=== PATIENT | female | born 1970 | race Caucasian/White ===

== ENCOUNTER → 2024-07-29 | Outpatient (CLI) | payer OTHER, SELFPAY ==
[2024-07-29 14:09] LABS: Glucose Estimated Average 108 mg/dL (80-131); Hemoglobin A1C 5.4 % Hgb (4.8-6.0)
== END | disposition home or self-care (01) ==
LOC: COPL 12:32
PROVIDERS: PCP Family Medicine; Referring Provider Family Medicine; Visit Provider Family Medicine
DX: E11.65 Type 2 diabetes mellitus with hyperglycemia (principal)
CPT/HCPCS: 36415; 83036

== ENCOUNTER → 2024-10-31 | Outpatient (CLI) | payer OTHER, SELFPAY ==
[2024-10-31 09:06] LABS: Glucose Estimated Average 103 mg/dL (80-131); Hemoglobin A1C 5.2 % Hgb (4.8-6.0)
[2024-10-31 09:08] LABS: Cardiac Risk Estimate 4.1 RATIO (3.7-5.6); Cholesterol 150 mg/dL (132-200); HDL Cholesterol 37 mg/dL (40-60); LDL Cholesterol,Calculated 89 mg/dL (0-130); Triglycerides 119 mg/dL (30-150)
== END | disposition home or self-care (01) ==
LOC: COPL 07:26
PROVIDERS: PCP Family Medicine; Referring Provider Family Medicine; Visit Provider Family Medicine
DX: E11.65 Type 2 diabetes mellitus with hyperglycemia (principal)
CPT/HCPCS: 36415; 80061; 83036

== ENCOUNTER 2024-11-25 15:24 | Outpatient (AMB) | payer OTHER, SELFPAY ==
[2024-11-25 15:45] VITALS: BP 111/68; PULSE 114; RESP 18; TEMP 36.3; O2SAT 96; BMI 29.1
--- NOTE | 2024-11-25 15:45 | AMB.GYNCLNOT ---
Vital Signs 11/25/24 15:45 Height 1.55 m Height Method Stated Weight 70.023 kg Weight Measurement Method Standing Scale BMI 29.1 BP 111/68 Blood Pressure Source Automatic Cuff Blood Pressure Location Left Upper Arm Position Sitting Respiration 18 Pulse 114 H Pulse Source Monitor Temp 97.3 F Temp Source Oral Pulse Oximetry (%) 96 Oxygen Delivery Method Room Air Allergies/Home Meds Allergies & Medications Allergies nitrofurantoin (From Macrobid) Allergy (Intermediate, Verified 11/25/24 15:46) Rash Medication Reconciliation levothyroxine 75 mcg tablet 75 mcg PO QDAY 07/11/21 [History Confirmed 11/25/24] Intake Visit Data Collection New Patient or Established: Established Patient (seen at [facility] within 3 years) Reason for Visit:: ANNUAL WELLNESS Seen by Clinical Staff ONLY (RN/MA): No Switchman Supervisor Required: No Do You Feel Safe at Home: Yes Authorities Contacted: N/A PCP or OBGYN visit in last 3 months: Yes Hx Now: No Are you currently on any form of Control: Yes Last menstrual period: 11/03/19 Pain Present Currently: No Pain Scale Used: Theodore-Mendiola/Numerical Pain scale:: 0 Smoking Status Smoking Status: Never smoker 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 1. Little interest or pleasure in doing things: not at all 2. Feeling down, depressed, or hopeless: not at all Total score: 0 PHQ-9 3. Trouble falling or staying asleep, or sleeping too much: Not at all 4. Feeling tired or having little energy: Not at all 5. Poor appetite or overeating: Not at all 6. Feeling bad about yourself - or that you are a failure or have let yourself or your family down: Not at all 7. Trouble concentrating on things, such as reading the newspaper or watching television: Not at all 8. Moving or speaking so slowly that other people could have noticed? - Or the opposite - being so fidgety or restless that you have been moving around a lot more than usual: not at all 9. Thoughts that you would be better off or of hurting yourself in some way: Not at all Total score: 0 Source: Developed by Drs. Juaquin Harrington, Brandy Sewell, Terry Cantor and colleagues, with an educational russell from [employer]. 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 23 y/o son, 26 y/o girl Tobacco History Smoking Status: Never smoker Second Hand Smoke Exposure: No Alcohol History Alcohol Intake: Never Substance Use History Substance Use: NONE Domestic Abuse History Do You Feel Safe at Home: Yes Past Medical History Past Medical History Have you ever been diagnosed with any of the following: Neurological Problems Seizures: No Cardiology Problems Cardiac Arrhythmia: No Heart Murmur: No Congestive Heart Failure: No Deep Vein Thrombosis: No Hypertension: No Respiratory Problems Asthma: No Sleep Apnea: No Smoking: No Smoking Cessation Counseling: No Stomache/Intestinal Problems Gall Bladder Disease: Yes (Cholecystectomy 06/2021) Obesity: Yes (Lost 44 pounds on Mounjaro. Still on Mounjaro 7 to 10 mg a day) Genital/Urinary Problems Kidney Stones: No Reproductive Problems Breast Cancer: No Endometriosis: No Fibroids: No Genital Herpes: No Gonorrhea: No Pelvic Inflammatory Disease: No Polycystic Ovarian Syndrome: Yes Previous Pregnancies: Yes (Vaginal delivery 1998 2001) Musculoskeletal Problems Arthritis: No Rheumatoid Arthritis: No Degenerative Disk Disease: Yes (Back surgery at [facility] 10 years ago with 2 disc replaced) Head,Eye,Nose,Throat Problems Cataracts: No Glaucoma: No Endocrine Problems Diabetes Mellitus Type 2: No Hypothyroidism: Yes (On levothyroxine) Blood Problems Anemia: No Psychologic Problems Depression: Yes (On Effexor 150 mg p.o. daily) Anxiety: Yes Other Problems Hospitalization: Yes (For x1, x 1) Autoimmune Disease: No Cosmetic Surgery: No Blood Transfusions: No Anesthesia Reactions: No Chicken Pox: Yes Surgical History Appendectomy: No Bariatric Surgery: No Breast Surgery: No Cholecystectomy: Yes Additional Surgical History: Back surgery with 2 discs replaced, NovaSure endometrial ablation. 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 History of Present Illness HPI Narrative The patient is a 54-year-old -0-2-2 who used to see me in [place]. She used to come for annual exams. We did perform an ablation on her in the past and she states her cycles are still monthly but they are much park recreation manager. She did not get her records yet but she will request a release of her records from my office. She is due for a mammogram. She has no gynecological complaints today specifically no hot flashes or night sweats as she still having menstrual cycles regular at age 54 we will go ahead and order a pelvic ultrasound. I told the patient if her lining is thick we might want to consider an endometrial biopsy. She has a daughter Nellie who is born in the 90s who is graduated college has a degree in public health and is working with dementia patients her son Terence cruz graduates soon from [employer] with a business administration degree he also has a real estate license. 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 Natividad Daniella and is her primary care patient. Patient is been on Ozempic and lost 44 pounds since last April. Menstrual character: normal Gynecologic pain symptoms: Reports none Menopause concerns/symptoms: Reports none Other pertinent information: Patient's status post NovaSure endometrial ablation in the past to my office. She continues to have regular cycles. No hot flashes no night sweats. An older sister went through menopause at 52. Her mother had a hysterectomy so she is not sure when she went through menopause. Review of Systems Constitutional Constitutional: Reports system reviewed and no additional complaints, except as documented Exam General General Appearance: alert, in no apparent distress, comfortable, cooperative, healthy appearing and well groomed Neck Neck exam: Present normal inspection, full ROM and trachea midline Chest Chest inspection: Present normal inspection and symmetric chest wall rise Exp Chest Breast: bilateral: other (Normal breast exam bilaterally.) Resp Respiratory exam: Present normal lung sounds bilaterally Card Cardiovascular exam: Present regular rate, normal rhythm and normal heart sounds Abdominal Abdominal exam: Present soft and normal bowel sounds External exam: Present normal external exam Speculum exam: Present normal speculum exam Bimanual exam: Present normal bimanual exam Extremities Extremities exam: Present normal inspection and full ROM Psych Psychiatric exam: Present normal affect and normal mood Skin Skin exam: Present warm, dry, intact and normal color Assessment & Plan Diagnosis / Problem List (1) Encounter for Routine Gynecological Examination: Qualifiers: Gynecological examination findings: abnormal findings ABSENT Qualified Code(s): Z01.419 - Encounter for gynecological examination (general) (routine) without abnormal findings Plan: Pap with cotesting high risk HPV was performed breast exam done encouraged. Mammogram was ordered. Primary care is checking all lab work on her. (2) Abnormal perimenopausal bleeding: Status: Acute Assessment and Plan: Patient is not menopausal. She has never stopped her cycles. But she is 54 having regular cycles after an ablation. Plan to check an ultrasound. If the lining is thick bring place him patient back in for endometrial biopsy. Additional Plan Follow Up: 1 Year Office Procedures OB Clinic LOC & Office Proc's Nursing/Assessment Patient Status: Established Patient OB Clinic Nursing Assessment: Medication Reconciliation, Update PMH in EMR and Vital Signs OB Clinic Coordination of Care: Complex Care and Chronic Disease 1-5, Consent,records obtained, informed consent, Education Simp Pt/Fam, Lab and Imaging orders and Staff clarify orders Miscellaneous Interventions: Breast Exam and Pelvic/Pap Smear Set up Established Patient Charge Established Patient Point Assignment: 150 Established Patient Point Charge: EP Level 4 (120-155) In Clinic Procedures Pap Smear: Yes
== END 2024-11-25 16:00 | disposition home or self-care (01) ==
LOC: HODSOBC 15:24
PROVIDERS: PCP Family Medicine; Referring Provider Family Medicine; Supervising Provider Obstetrics & Gynecology; Visit Provider Obstetrics & Gynecology
DX: Z01.419 Encounter for gynecological examination (general) (routine) without abnormal findings (principal); N92.4 Excessive bleeding in the premenopausal period; E03.9 Hypothyroidism, unspecified; E66.9 Obesity, unspecified; Z68.29 Body mass index [BMI] 29.0-29.9, adult; Z79.890 Hormone replacement therapy; Z79.899 Other long term (current) drug therapy
CPT/HCPCS: 99214; Q0091; G0463

== ENCOUNTER → 2024-12-11 | Outpatient (CLI) | payer OTHER, SELFPAY ==
--- NOTE | 2024-12-11 07:15 | XR_ITS ---
Examination: Transvaginal ultrasound of the pelvis, complete Technique: Transvaginal sonographic images pelvis performed using wang scale imaging Exam date and time: December 11, 2024 0731 hours INDICATIONS: Prominent lower uterine segment on CT pelvis July 11, 2021 FINDINGS: Uterus 8.9 cm, cervical mass versus cyst with internal echoes 13 x 7 x 12 mm Endometrial stripe 0.6 cm Ovaries obscured by bowel gas IMPRESSION: Cervical cyst versus mass 13 x 7 x 12 mm Recommend MRI pelvis follow-up pre and postcontrast.
--- NOTE | 2024-12-11 07:15 | XR_ITS ---
Examination: Pelvic ultrasound, transabdominal, complete Technique: Transabdominal ultrasound of the pelvis performed using grayscale imaging Date and time of exam: December 11, 2024 at 0722 hours INDICATIONS: Prominent lower uterine segment on CT pelvis July 11, 2021 FINDINGS: Uterus 9.8 cm endometrial stripe 0.8 cm No uterine mass depicted Right ovary 2.3 cm arterial flow small follicles, the largest 11 mm Left ovary 2.4 cm arterial flow, small follicles, the largest 7 mm IMPRESSION: No uterine or adnexal mass
== END | disposition home or self-care (01) ==
PROVIDERS: PCP Family Medicine; Referring Provider Obstetrics & Gynecology; Visit Provider Obstetrics & Gynecology
DX: N93.8 Other specified abnormal uterine and vaginal bleeding (principal)
CPT/HCPCS: 76830; 76856

== ENCOUNTER 2024-12-25 17:07 | Outpatient (AMB) | payer OTHER, SELFPAY ==
--- NOTE | 2024-12-25 17:08 | GYNCLNT_ITS ---
Allergies/Home Meds Allergies & Medications Allergies nitrofurantoin (From Macrobid) Allergy (Intermediate, Verified 12/25/24 17:08) Rash Medication Reconciliation levothyroxine 75 mcg tablet 75 mcg PO QDAY 07/11/21 [History Confirmed 12/25/24] Intake Visit Data Collection New Patient or Established: Established Patient (seen at [facility] within 3 years) Reason for Visit:: Tele med to discuss TV US and mammogram Consent obtained for Telemed Visit: Yes Retreader Required: No Do You Feel Safe at Home: Yes Authorities Contacted: N/A PCP or OBGYN visit in last 3 months: Yes Hx Now: No Are you currently on any form of Control: No Pain Present Currently: No Pain Scale Used: Theodore-Mendiola/Numerical Pain scale:: 0 Smoking Status Smoking Status: Never smoker 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 1. Little interest or pleasure in doing things: not at all 2. Feeling down, depressed, or hopeless: not at all Total score: 0 PHQ-9 3. Trouble falling or staying asleep, or sleeping too much: Not at all 4. Feeling tired or having little energy: Not at all 5. Poor appetite or overeating: Not at all 6. Feeling bad about yourself - or that you are a failure or have let yourself or your family down: Not at all 7. Trouble concentrating on things, such as reading the newspaper or watching television: Not at all 8. Moving or speaking so slowly that other people could have noticed? - Or the opposite - being so fidgety or restless that you have been moving around a lot more than usual: not at all 9. Thoughts that you would be better off or of hurting yourself in some way: Not at all Total score: 0 If you checked off any problems, how difficult have these problems made it for you to do your work, take care of things at home, or get along with other people?: not difficult at all Source: Developed by Brandy Mendez B.W. Donato, Terry Cantor and colleagues, with an educational russell from [employer]. 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 Still on Mounjaro 7 to 10 mg a day) Genital/Urinary Problems Renal Disease: No Reproductive Problems Breast Cancer: No Endometriosis: No Fibroids: No Genital Herpes: No Gonorrhea: No Pelvic Inflammatory Disease: No Polycystic Ovarian Syndrome: Yes Previous Pregnancies: Yes (Vaginal delivery 1998 2001) Syphilis: No Musculoskeletal Problems Degenerative Disk Disease: Yes (Back surgery at [facility] 10 years ago with 2 disc replaced) Endocrine Problems Diabetes Mellitus Type 2: No Hypothyroidism: Yes (On levothyroxine) Blood Problems Anemia: No Psychologic Problems Depression: Yes (On Effexor 150 mg p.o. 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 Pt still having light cycles at age 54 s/p Novasure ablation in the past. US done to r/o thick lining. Also mammo with a spot on it and would like to discuss. Results Objective Laboratory: Pap not on chart Will look up report and review with patient Imagin12/11/24 US at [facility]: Uterus 8.9 cm stripe 0.6 cm Ovaries both WNL 1.3 x 1.2 x 0.6 cm mass on cx need MRI to further dx Reasurred pt this is most likely a nabothian cyst and recommended repeat TV US at another facility is 6 mos No need for EMB at this time Mammo at [place] Dense tissue on left Offered referral to Dr Sal or repeat mammo in 6 months Pt will have repeat mammo in 6 months Assessment & Plan Diagnosis / Problem List (1) Abnormal perimenopausal bleeding: Status: Acute Assessment and Plan: Keep an eye on VB , repeat US 6 mos not at [facility] (2) Abnormal mammogram: Status: Acute Plan: Repeat mammo in 6 months. Call if she notices any differences on a self breast exam Office Procedures OB Clinic LOC & Office Proc's Nursing/Assessment Patient Status: Established Patient OB Clinic Nursing Assessment: Medication Reconciliation and Update PMH in EMR OB Clinic Coordination of Care: Consent,records obtained, informed consent, Lab and Imaging orders and Staff clarify orders Established Patient Charge Established Patient Point Assignment: 45 Telehealth If patient is seen using Teleconference methods, complete New/Est section, but DO NOT clay points only clay the correct Telemed visit type Telemed Phone/Video with patient at home & ,PA,PHOTOGRAPHER APPRENTICE LITHOGRAPHIC: Yes
== END 2024-12-25 17:31 | disposition home or self-care (01) ==
LOC: HODSOBC 17:07
PROVIDERS: PCP Family Medicine; Referring Provider Family Medicine; Supervising Provider Obstetrics & Gynecology; Visit Provider Obstetrics & Gynecology
DX: N92.4 Excessive bleeding in the premenopausal period (principal); R92.8 Other abnormal and inconclusive findings on diagnostic imaging of breast
CPT/HCPCS: 99212; G0463

== ENCOUNTER → 2025-01-29 | Outpatient (CLI) | payer OTHER, SELFPAY ==
[2025-01-29 11:53] LABS: Glucose Estimated Average 103 mg/dL (80-131); Hemoglobin A1C 5.2 % Hgb (4.8-6.0)
== END | disposition home or self-care (01) ==
LOC: COPL 10:15
PROVIDERS: PCP Family Medicine; Referring Provider Family Medicine; Visit Provider Family Medicine
DX: E11.65 Type 2 diabetes mellitus with hyperglycemia (principal)
CPT/HCPCS: 36415; 83036

== ENCOUNTER → 2025-02-04 | Outpatient (CLI) | payer OTHER, SELFPAY ==
[2025-02-04 16:31] LABS: Basophils # (Auto) 0.1 Thou/mm3 (0.0-0.2); Basophils % (Auto) 1 % (0-2.5); Eosinophils # (Auto) 0.1 Thou/mm3 (0.0-0.5); Eosinophils % (Auto) 1 % (0-10); Hemoglobin 14.8 g/dL (12.0-16.0); Immature Granulocytes % (Auto) 0 % (0-0); Immature Granulocytes Auto 0.04 Thou/mm3 (0.00-0.00); Lymphocytes # (Auto) 2.3 Thou/mm3 (1.0-4.8); Lymphocytes % (Auto) 20 % (10-50); Mean Corpuscular HGB Conc 33.6 g/dl (31.0-37.0); Mean Corpuscular Hemoglobin 27.8 pg (25.0-35.0); Mean Corpuscular Volume 83 fL (80-100); Monocytes # (Auto) 0.6 Thou/mm3 (0.0-0.8); Monocytes % (Auto) 5 % (0-12); Neutrophils # (Auto) 8.6 Thou/mm3 (1.8-7.7); Neutrophils % (Auto) 73 % (37-80); Nucleated Red Blood Cell % 0 /100 WBC (0); Platelet Count 291 Thou/mm3 (140-440); RDW Standard Deviation 39.7 fL (36.4-46.3); Red Blood Count 5.32 Miln/mm3 (4.00-5.20); White Blood Count 11.8 Thou/mm3 (3.6-11.0)
[2025-02-04 17:01] LABS: Alanine Aminotransferase 9 U/L (10-49); Albumin, Serum 4.2 gm/dL (3.5-5.0); Albumin/Globulin Ratio 1.9 (1.2-2.2); Alkaline Phosphatase 69 U/L (46-116); Anion Gap 9 (7-16); BUN/Creatinine Ratio 12 Ratio (12-20); Bilirubin,Total 0.4 mg/dL (0.3-1.2); Blood Urea Nitrogen 11 mg/dL (9-23); Calcium 9.1 mg/dL (8.3-10.6); Calcium (Corrected) 9.1 mg/dL (8.5-10.1); Carbon Dioxide 28.8 mMol/L (20.0-31.0); Chloride 105 mMol/L (98-107); Creatinine (Component) 0.9 mg/dL (0.6-1.3); Free T4 (Free Thyroxine) 1.35 ng/dL (0.89-1.76); Globulin 2.2 gm/dL (2.3-3.5); Glucose 111 mg/dL (74-106); Osmolality,Calculated 285 (275-295); Potassium 4.2 mMol/L (3.4-5.1); Sodium 143 mMol/L (136-145); Thyroid Stimulating Hormone 0.95 uIU/mL (0.55-4.78); Total Protein 6.4 gm/dL (5.7-8.2); eGFR > 60 See Note
== END | disposition home or self-care (01) ==
LOC: COPL 14:52
PROVIDERS: PCP Family Medicine; Referring Provider Family Medicine; Visit Provider Family Medicine
DX: E11.65 Type 2 diabetes mellitus with hyperglycemia (principal); E03.9 Hypothyroidism, unspecified
CPT/HCPCS: 36415; 80053; 84439; 84443; 85025

== ENCOUNTER 2025-04-30 21:38 | Emergency (ER) | payer OTHER, SELFPAY ==
[2025-04-30 21:39] VITALS: BMI 26.6
[2025-04-30 21:45] VITALS: BP 106/69; PULSE 103; RESP 20; TEMP 37.3; O2SAT 97
--- NOTE | 2025-04-30 22:01 | XR_ITS ---
Examination: CT abdomen with intravenous contrast CT pelvis with intravenous contrast 2-D coronal reconstructions 2-D sagittal reconstructions Date and time of exam:May 01, 2025, 0122 hrs. Indications: Abdominal pain nausea vomiting diarrhea beginning 3 days ago.. CTDI: vol (mGy) 7.44. DLP: (mGycm) 416. Technique: Multiple axial sections of the abdomen and pelvis have been obtained. 64 slice high-resolution scanner used. 3 mm axial sections have been obtained, post intravenous injection 60 cc [id number]. 2-D sagittal, coronal reconstructions obtained. Low dose protocols were performed. One or more of the following dose reduction techniques were used; automated exposure control, adjustment of the mA and/or KV according to patient size, use of iterative reconstruction technique. Findings: No focal liver or splenic lesions. Absent gallbladder. No pancreatic or adrenal mass. No renal or ureteral calculi. I do not visualize a definite mesenteric area of fat inflammation Normal appendix No bowel obstruction Anteverted uterus No pelvic mass Bladder intact Impression: No acute process in the abdomen or pelvis.
--- NOTE | 2025-04-30 22:02 | EDNOTE_ITS ---
Nausea/Vomit./Diarrhea-RME/HPI General Chief complaint: Abdominal Pain Stated complaint: ABDOMINAL PAIN, N/V/D Time Seen by Provider: 04/30/25 22:00 Arrival date/time: 04/30/25 21:38 54F with history of tracheal stenosis, PCOS, hypothyroidism, and cholecystectomy presents to ED with several days of N/V, ab pain, and non-bloody diarrhea. Limitations: no limitations Related Data Home Medications ?Medication ?Instructions ?Recorded ?Confirmed levothyroxine 75 mcg tablet 75 mcg PO QDAY 07/11/21 Previous Rx's ?Medication ?Instructions ?Recorded hydrocodone 5 mg-acetaminophen 325 1 tab PO BID PRN pa in #10 tabs 05/01/25 mg tablet ondansetron 4 mg disintegrating 4 mg PO Q8H PRN nausea and 05/01/25 tablet vomiting #14 tabs Allergies Allergy/AdvReac Type Severity Reaction Status Date / Time nitrofurantoin (From Allergy Intermediate Rash Verified 12/25/24 17:08 Macrobid) Review of Systems Review of Systems Systems Reviewed: All systems reviewed, normal except as documented Constitutional Constitutional: Reports system reviewed and no additional complaints, except as documented, Denies fever(s) and Denies headache(s) ENT Ears, Nose, Mouth, and Throat: Denies disequilibrium and Denies headache(s) Cardiovascular Cardiovascular: Reports system reviewed and no additional complaints, except as documented, Denies chest pain and Denies dyspnea Respiratory Respiratory: Reports system reviewed and no additional complaints, except as documented, Denies cough and Denies dyspnea Gastrointestinal Gastrointestinal: Reports system reviewed and no additional complaints, except as documented, Reports as per HPI, Reports abdominal pain, Reports diarrhea, Reports nausea and Reports vomiting Neurologic Neurologic: Reports system reviewed and no additional complaints, except as documented, Denies confusion, Denies disequilibrium and Denies headache(s) Psychiatric Psychiatric: Denies confusion Past Medical History Past Medical History NEUROLOGIC: Negative Neurological Disorders, Cerebrovascular Accident, Transient Ischemic Attacks (TIA), Dementia, Alzheimer's Disease, Parkinson's Disease, Seizures, Guillain-Franklin Syndrome, Herndon's Palsy, Spinal Cord Injury or Traumatic Brain Injury CARDIAC: Negative Cardiac Disorders, Myocardial Infarction, Cardiac Arrhythmia, Atrial Fibrillation, Angina, Heart Murmur, Coronary Artery Disease, Atherosclerotic Heart Disease, Hypercholesterolemia, Aneurysm, Congestive Heart Failure, Congenital Heart Disease, Valvular Heart Disease, Deep Vein Thrombosis or Hypertension RESPIRATORY: Negative Chronic Obstructive Pulmonary Disease (COPD), Asthma, Pneumonia, Pulmonary Fibrosis, Tuberculosis, Sleep Apnea, Cough, Sputum Production, Wheezing, Chest Deformities, Smoking, Smoking Cessation Counseling or Smoking Exposure GASTROINTESTINAL: Positive Gall Bladder Disease (Cholecystectomy 06/2021) and Obesity (Lost 44 pounds on Mounjaro. Still on Mounjaro 7 to 10 mg a day); Negative Gastrointestinal Disorders, Liver Cancer, Hepatitis, Cirrhosis, Pancreatic Cancer, Pancreatitis or Celiac Disease GENITOURINARY: Negative Genitourinary Disorders, Renal Disease, Kidney Stones, Inguinal Hernia or Dialysis REPRODUCTIVE: Positive Hx Polycystic Ovarian Syndrome and Previous Pregnancies (Vaginal delivery 1998 2001); Negative Breast Cancer, Endometriosis, Fibroids, Genital Herpes, Gonorrhea, Pelvic Inflammatory Disease or Syphilis MUSCULOSKELETAL: Positive Degenerative Disk Disease (Back surgery at [facility] 10 years ago with 2 disc replaced); Negative Musculoskeletal Disorders, Muscular Dystrophy, Myasthenia Gravis, Marfan's Syndrome, Bone Cancer, Arthritis, Rheumatoid Arthritis, Osteoporosis, Gout, Scoliosis, Fractures or Poliovirus ENT: Negative Cataracts, Glaucoma, Blind, Retinal Detachment, Macular Degeneration, Ear Infection, Deafness or Eye Prosthesis ENDOCRINE: Positive Endocrine Disorders and Hypothyroidism (On levothyroxine); Negative Diabetes Mellitus Type 1, Diabetes Mellitus Type 2, Sam's Syndrome or [place]'s Disease HEMATOLOGIC: Negative Blood Disorders, Anemia, Leukemia, Hemophilia, Thalassemia or Sickle Cell Disease PSYCHO/SOCIAL: Positive Depression (On Effexor 150 mg p.o. daily) and Anxiety; Negative Schizophrenia, Recreational Drug Use, Bipolar Disorder, Behavior Problems, Self-Mutilation, Attention Deficit Disorder, Depression or Post Traumatic Stress Disorder OTHER HISTORY: Positive Hospitalization (For x1, x 1) and Chicken Pox; Negative Autoimmune Disease, Down Syndrome, Autism, Cosmetic Surgery, Blood Transfusions, Anesthesia Reactions, Measles, Mumps, Cancer or Breast Cancer Surgical History SURGICAL: Positive Section (x1) Social History SMOKING STATUS: Never smoker SECOND HAND EXPOSURE: No ED Exam General Limitations: Present no limitations General appearance: Present alert and in no apparent distress Head Head exam: Present atraumatic Eye Eye exam: Present normal appearance, PERRL and EOMI ENT ENT exam: Present normal exam, normal oropharynx and mucous membranes moist Neck Neck exam: Present normal inspection, full ROM and trachea midline Chest Chest inspection: Present normal inspection and symmetric chest wall rise Respiratory Respiratory exam: Present normal lung sounds bilaterally Cardiovascular Cardiovascular exam: Present regular rate, normal rhythm and normal heart sounds Abdominal Exam Abdominal exam: Present soft, tenderness and normal bowel sounds Abdominal tenderness: Present mild Extremities Exam Extremities exam: Present normal inspection and full ROM Back Exam Back exam: Present normal inspection and full ROM Neurological Exam Neurological exam: Present alert, oriented X3 and CN II-XII intact Psychiatric Psychiatric exam: Present normal affect and normal mood Skin Skin exam: Present warm, dry, intact and normal color Course Quality Measures none Orders Category Date Time Status CT Screening NOW Care 04/30/25 22:01 Active Insert IV NOW Care 04/30/25 22:[address] abdomen pelvis w con Stat Exams 04/30/25 22:01 Taken CBC Stat Lab 04/30/25 22:20 Completed CMP [Comprehensive Metabolic Panel] Stat Lab 04/30/25 22:20 Completed Drug Screen,Urine Stat Lab 04/30/25 23:14 Completed HCG Qualitative,Urine Stat Lab 04/30/25 23:14 Completed Lactate (Lactic Acid) Stat Lab 04/30/25 22:20 Completed Lipase Stat Lab 04/30/25 22:20 Completed Procalcitonin Stat Lab 04/30/25 22:20 Completed Urinalysis, C/S if Indicated Stat Lab 04/30/25 23:14 Completed Urine Culture Stat Lab 04/30/25 23:14 Received Diazepam Inj [Valium Inj] Med 05/01/25 00:05 Discontinued 10 mg IVP X1 ONE Diazepam Inj [Valium Inj] Med 05/01/25 00:12 Discontinued 5 mg IVP X1 ONE Morphine* Inj Med 05/01/25 05:02 Discontinued 5 mg IVP X1 ONE Morphine* Inj Med 05/01/25 05:26 Discontinued 8 mg .ROUTE .STK-MED ONE Ondansetron Inj [Zofran Inj] Med 04/30/25 22:01 Discontinued 4 mg IV X1 ONE Sodium Chloride 0.9% 1000 ml [Ns] 1,000 ml Med 04/30/25 22:01 Discontinued IV 999 mls/hr Vital Signs Vital signs: Vital Signs Temperature 99.2 F 04/30/25 21:45 Pulse Rate 103 H 04/30/25 21:45 Respiratory Rate 20 04/30/25 21:45 Blood Pressure 106/69 04/30/25 21:45 Pulse Oximetry (%) 97 04/30/25 21:45 Oxygen Delivery Method Room Air 04/30/25 21:45 O2 at 97% on RA and WNLs Nausea/Vomiting/Diarrhea MDM Narrative MDM Narrative:: 54F with history of tracheal stenosis, PCOS, hypothyroidism, and cholecystectomy presents to ED with several days of N/V, ab pain, and non-bloody diarrhea. Physical exam reveals mild gen ab tenderness. Patient is afebrile, alert, but anxious. Telerad CT reveals mesenteric panniculitis. Moderate leukocytosis. CMP unremarkable. Lipase normal. Procal/lactate normal. UA mild UTI. Tox/HCG screen neg. Meds and correctional counselor/case manager given, including to see Dr. Marie (patient already has been a patient of his before) or see PCP for another GI referral. Patient data External records reviewed:: [facility] previous records Clinical information provided by:: patient Social determinants that could affect healthcare access:: none Patient has the following chronic illnesses:: tracheal stenosis, PCOS, hypothyroidism, and cholecystectomy How is presenting disease/condition affected by chronic disease/condition?: exacerbated by Evaluation data The following diagnostics were reviewed and interpreted by me:: lab results and radiology exam(s) Lab and/or radiology exams considered but not ordered:: ordered Interpretation Summary: above Medications / Prescriptions Medications / Prescriptions considered but not ordered:: ordered Medication administrations:: Medication Administration History Discontinued Medications Diazepam (Diazepam Inj 5 Mg/Ml Vial 2 Ml) 10 mg IVP X1 ONE Stop: 05/01/25 00:06 Last Admin: 05/01/25 01:08 Dose: Not Given Documented By: DT Non-Admin Reason: Cancelled by Provider Diazepam (Diazepam Inj 5 Mg/Ml Vial 2 Ml) 5 mg IVP X1 ONE Stop: 05/01/25 00:13 Last Admin: 05/01/25 01:07 Dose: 5 mg Documented By: DT Sodium Chloride (Ns) 1,000 mls @ 999 mls/hr IV .Q1H1M ONE Stop: 04/30/25 23:01 Last Infusion: 05/01/25 01:15 Dose: Infused Documented By: Admin: 05/01/25 00:14 Dose: 999 mls/hr Documented By: DT Morphine Sulfate (Morphine Sulf Inj 4 Mg/Ml Vial) 5 mg IVP X1 ONE Stop: 05/01/25 05:03 Last Admin: 05/01/25 05:30 Dose: 5 mg Documented By: DT Morphine Sulfate (Morphine Sulf Inj 4 Mg/Ml Vial) Confirm Administered Dose 8 mg .ROUTE .STK-MED ONE Stop: 05/01/25 05:27 Last Admin: 05/01/25 05:34 Dose: Not Given Documented By: DT Non-Admin Reason: Duplicate Medication on eMAR Ondansetron HCl (Ondansetron Inj 2 Mg/Ml Inj 2 Ml) 4 mg IV X1 ONE; Protocol Stop: 04/30/25 22:02 Last Admin: 05/01/25 01:07 Dose: 4 mg Documented By: DT above Consultations Consultation(s) initiated? (list below): No Diagnosis Nausea Differential Diagnosis: traveler's diarrhea, food poisoning, gastroenteritis, clostridium difficile infection, drug-induced nausea and vomiting and dehydration Most likely diagnosis given after review of the tests above:: ab pain and meseteric panniculitis Admission Indicated Admission indicated?: not indicated Admission Request Was there a request for admission?: No Disposition Plan Disposition Plan: Discharge Discharge Attestation Discharge Attestation: The patient and all family members were given an opportunity to ask questions and understood the discharge instructions. Discharge instructions specifically effects, indications for sooner follow up or return to the emergency department, and the expected course of current diagnosis. Patient condition: Stable Discharge Plan Plan Patient Disposition: HOME (Self Care) Discharge Disposition comment: Stable Prescriptions/Referrals Prescriptions/Med Rec: New ondansetron 4 mg tablet,disintegrating 4 mg PO Q8H PRN (Reason: nausea and vomiting) Qty: 14 0RF hydrocodone-acetaminophen 5-325 mg tablet 1 tab PO BID MDD 2 PRN (Reason: pain) Qty: 10 0RF No Action levothyroxine 75 mcg tablet 75 mcg PO QDAY Referrals: Natividad Osuna MD [Primary Care Provider, Family Practice] - In 1 week Problem List Clinical Impression: Mesenteric panniculitis, Abdominal pain Patient/Caregiver Discharge Instructions Education Materials: ED Abdominal Pain Unkn Cause Fem Additional Instructions: Please follow-up with PCP within 24-48 hours and return immediately if symptoms worsen. See PCP for referral to GI. See patient portal to follow-up on official test results. Print Language: Maori Stand Alone Forms: Patient Portal Info Letter YANI/CLEMENTINE Supervising Physician YANI/CLEMENTINE Supervising Physician: Dr. Arreaga
[2025-04-30 22:31] LABS: Lactate (Lactic Acid) 1.0 mMol/L (0.4-2.0)
[2025-04-30 22:35] LABS: Basophils # (Auto) 0.1 Thou/mm3 (0.0-0.2); Basophils % (Auto) 0 % (0-2.5); Eosinophils # (Auto) 0.0 Thou/mm3 (0.0-0.5); Eosinophils % (Auto) 0 % (0-10); Hematocrit 43.1 % (36.0-46.0); Hemoglobin 14.1 g/dL (12.0-16.0); Immature Granulocytes Auto 0.07 Thou/mm3 (0.00-0.00); Lymphocytes # (Auto) 1.1 Thou/mm3 (1.0-4.8); Lymphocytes % (Auto) 6 % (10-50); Mean Corpuscular HGB Conc 32.7 g/dl (31.0-37.0); Mean Corpuscular Hemoglobin 27.6 pg (25.0-35.0); Mean Corpuscular Volume 84 fL (80-100); Monocytes # (Auto) 0.5 Thou/mm3 (0.0-0.8); Monocytes % (Auto) 3 % (0-12); Neutrophils # (Auto) 15.9 Thou/mm3 (1.8-7.7); Neutrophils % (Auto) 90 % (37-80); Nucleated Red Blood Cell # 0.00 Thou/mm3 (0.00-0.00); Nucleated Red Blood Cell % 0 /100 WBC (0); Platelet Count 242 Thou/mm3 (140-440); RDW Standard Deviation 39.6 fL (36.4-46.3); Red Blood Count 5.11 Miln/mm3 (4.00-5.20); White Blood Count 17.7 Thou/mm3 (3.6-11.0)
[2025-04-30 23:19] LABS: Alanine Aminotransferase < 7 U/L (10-49); Albumin, Serum 4.3 gm/dL (3.5-5.0); Albumin/Globulin Ratio 1.8 (1.2-2.2); Alkaline Phosphatase 92 U/L (46-116); Anion Gap 12 (7-16); Aspartate Amino Transferase 11 U/L (0-34); BUN/Creatinine Ratio 16 Ratio (12-20); Bilirubin,Total 0.9 mg/dL (0.3-1.2); Blood Urea Nitrogen 14 mg/dL (9-23); Calcium 9.4 mg/dL (8.3-10.6); Calcium (Corrected) 9.4 mg/dL (8.5-10.1); Carbon Dioxide 25.9 mMol/L (20.0-31.0); Chloride 103 mMol/L (98-107); Creatinine (Component) 0.9 mg/dL (0.6-1.3); Estimated Creatinine Clearance 62.6 mL/min (>60); Globulin 2.4 gm/dL (2.3-3.5); Glucose 106 mg/dL (74-106); Lipase 31 U/L (12-53); Osmolality,Calculated 281 (275-295); Potassium 3.7 mMol/L (3.4-5.1); Procalcitonin 0.15 ng/ml (0.0-0.49); Sodium 141 mMol/L (136-145); Total Protein 6.7 gm/dL (5.7-8.2); eGFR > 60 See Note
[2025-04-30 23:20] LABS: Collection Type, Urine Clean Catch
[2025-04-30 23:23] LABS: HCG Qualitative,Urine Negative
[2025-04-30 23:25] LABS: Bacteria,Urine Rare; Bilirubin,Urine Negative (Negative); Blood,Urine Negative (Negative); Clarity,Urine Clear (Clear/Hazy); Color,Urine Yellow (Lt Yel-Yel); Culture Indicated,Urine Yes; Glucose, Urine Negative (Negative); Ketones,Urine Trace (Negative); Leukocyte Esterase,Urine Positive (Negative); Nitrite,Urine Negative (Negative); PH,Urine 5.5 (5.0-7.0); Protein,Urine Trace (Neg - Trace); RBC,Urine 1 /hpf (0-3); Specific Gravity,Urine 1.033 (1.001-1.035); Squamous Epithelial Cell,Urine 4 /hpf (0-5); Urobilinogen,Urine Negative mg/dL (0.0-1.0); WBC,Urine 21 /hpf (0-5)
[2025-04-30 23:31] LABS: Amphetamine/Methamp Scrn,U Negative (Negative); Barbiturate Screen,Urine Negative (Negative); Benzodiazepines Screen,Urine Negative (Negative); Benzoylecgonine Screen, Ur Negative (Negative); Fentanyl Screen,Urine Negative (Negative); Opiate Screen,Urine Negative (Negative); THC Screen,Urine Negative (Negative)
[2025-05-01 00:06] VITALS: BP 106/62; PULSE 92; RESP 14; O2SAT 99
[2025-05-01] MEDS: SODIUM CHLORIDE 0.9% 1000 ML 1,000 ML 999 ML IV (00:14)
[2025-05-01 01:02] VITALS: BP 106/62; PULSE 93; RESP 18; TEMP 37.6; O2SAT 99
[2025-05-01] MEDS: ONDANSETRON INJ 2 MG/ML INJ 2 ML 4 MG IV (01:07)
[2025-05-01] MEDS: DIAZEPAM INJ 5 MG/ML VIAL 2 ML IVP (01:07)
--- NOTE | 2025-05-01 03:10 | PRELIM_ITS ---
CT scan of the abdomen and pelvis with intravenous contrast (axial sections with sagittal and coronal reformats) May 01, 2025 0122 hours Clinical History: Abdominal pain, nausea, vomiting, diarrhea Comparison: Compared with the prior study dated June. Findings: The lung bases are clear. The gallbladder is surgically absent. The liver, pancreas, spleen, kidneys and adrenals are unremarkable. No evidence of bowel obstruction. The appendix is within normal limits (images [id number]). There is no retroperitoneal adenopathy. The urinary bladder is unremarkable. The adnexa are unremarkable. The uterus demonstrates subtle hyperdensity within the myometrium, likely due to calcifications. There is no free fluid or free air. There is diffuse mesenteric fat stranding at its root with a few prominent mesenteric lymph nodes. Degenerative changes are identified in the spine. Impression: Findings suggestive of mesenteric panniculitis. Subtle hyperdensity within the myometrium, likely due to calcifications. Recommend further evaluation with sonography, if clinically indicated. Report Electronically Signed By: Demetri Serna 05/01/2025 3:10:36 AM [EST]
--- NOTE | 2025-05-01 04:34 | PC.NURSE ---
WE HAD DOWN TIME FROM [id number].
[2025-05-01 04:37] VITALS: BP 119/70; PULSE 92; RESP 14; TEMP 37.1; O2SAT 97
[2025-05-01] MEDS: MORPHINE SULF INJ 4 MG/ML VIAL 5 MG IVP (05:30)
[2025-05-01 05:35] VITALS: BP 101/65; PULSE 89; RESP 14; TEMP 37; O2SAT 99
== END 2025-05-01 06:01 | disposition home or self-care (01) ==
PROVIDERS: Physician Assistant; Emergency Provider Emergency Medicine; PCP Family Medicine
DX: K65.4 Sclerosing mesenteritis (principal); E28.2 Polycystic ovarian syndrome; E03.9 Hypothyroidism, unspecified
CPT/HCPCS: 36415; 74177; 80053; 80307; 81001; 81025; 83605; 83690; 84145; 85025; 87086; 96361; 96374; 96375; 99284; A4649; J2270; J2405; J3360; J7030; Q9967

== ENCOUNTER → 2025-05-08 | Outpatient (CLI) | payer OTHER, SELFPAY ==
[2025-05-08 17:31] LABS: Basophils # (Auto) 0.1 Thou/mm3 (0.0-0.2); Basophils % (Auto) 1 % (0-2.5); Eosinophils # (Auto) 0.2 Thou/mm3 (0.0-0.5); Eosinophils % (Auto) 1 % (0-10); Hematocrit 39.4 % (36.0-46.0); Hemoglobin 12.9 g/dL (12.0-16.0); Immature Granulocytes Auto 0.04 Thou/mm3 (0.00-0.00); Lymphocytes # (Auto) 2.9 Thou/mm3 (1.0-4.8); Lymphocytes % (Auto) 26 % (10-50); Mean Corpuscular HGB Conc 32.7 g/dl (31.0-37.0); Mean Corpuscular Hemoglobin 27.6 pg (25.0-35.0); Mean Corpuscular Volume 84 fL (80-100); Monocytes # (Auto) 0.7 Thou/mm3 (0.0-0.8); Monocytes % (Auto) 6 % (0-12); Neutrophils # (Auto) 7.5 Thou/mm3 (1.8-7.7); Neutrophils % (Auto) 66 % (37-80); Nucleated Red Blood Cell # 0.00 Thou/mm3 (0.00-0.00); Nucleated Red Blood Cell % 0 /100 WBC (0); Platelet Count 291 Thou/mm3 (140-440); RDW Standard Deviation 39.1 fL (36.4-46.3); Red Blood Count 4.68 Miln/mm3 (4.00-5.20); White Blood Count 11.4 Thou/mm3 (3.6-11.0)
[2025-05-08 17:48] LABS: Alanine Aminotransferase 11 U/L (10-49); Albumin, Serum 3.9 gm/dL (3.5-5.0); Albumin/Globulin Ratio 1.9 (1.2-2.2); Alkaline Phosphatase 70 U/L (46-116); Anion Gap 6 (7-16); Aspartate Amino Transferase 12 U/L (0-34); BUN/Creatinine Ratio 10 Ratio (12-20); Bilirubin,Total 0.2 mg/dL (0.3-1.2); Blood Urea Nitrogen 8 mg/dL (9-23); Calcium 9.1 mg/dL (8.3-10.6); Calcium (Corrected) 9.2 mg/dL (8.5-10.1); Carbon Dioxide 30.1 mMol/L (20.0-31.0); Chloride 103 mMol/L (98-107); Creatinine (Component) 0.8 mg/dL (0.6-1.3); Free T4 (Free Thyroxine) 1.10 ng/dL (0.89-1.76); Globulin 2.1 gm/dL (2.3-3.5); Glucose 98 mg/dL (74-106); Osmolality,Calculated 275 (275-295); Potassium 4.6 mMol/L (3.4-5.1); Sodium 139 mMol/L (136-145); Thyroid Stimulating Hormone 2.25 uIU/mL (0.55-4.78); Total Protein 6.0 gm/dL (5.7-8.2); eGFR > 60 See Note
== END | disposition home or self-care (01) ==
LOC: COPL 15:48
PROVIDERS: PCP Family Medicine; Referring Provider Family Medicine; Visit Provider Family Medicine
DX: E11.65 Type 2 diabetes mellitus with hyperglycemia (principal); E03.9 Hypothyroidism, unspecified
CPT/HCPCS: 36415; 80053; 84439; 84443; 85025

== ENCOUNTER → 2025-07-31 | Outpatient (CLI) | payer OTHER, SELFPAY ==
[2025-07-31 17:06] LABS: Glucose Estimated Average 131 mg/dL (80-131); Hemoglobin A1C 6.2 % Hgb (4.8-6.0)
== END | disposition home or self-care (01) ==
LOC: COPL 16:01
PROVIDERS: PCP Family Medicine; Referring Provider Family Medicine; Visit Provider Family Medicine
DX: E11.65 Type 2 diabetes mellitus with hyperglycemia (principal)
CPT/HCPCS: 36415; 83036